=== PATIENT | female | born 2005 | race African-American/Black ===

== ENCOUNTER 2023-10-26 23:20 | Emergency (ER) | payer OTHER | END 2023-10-27 00:14 | disposition home or self-care (01) | LOC: ERS 23:20 | DX: M25.512 Pain in left shoulder (principal); Z55.6 Problems related to health literacy ==

== ENCOUNTER 2025-03-26 19:28 | Emergency (ER) | payer SELFPAY ==
[2025-03-26 20:36] LABS: Pregnancy Test - Urine (BHCG) Negative (Negative)
[2025-03-26 20:37] LABS: CAUTI Indications for Culture Pelvic or flank pain; Glucose, Urine (Dipstick) Normal (Negative); Leukocyte Negative Leu/uL (Negative); Pregu Control Background? CLEAR/WHITE (CLR/WHITE); Pregu Control Bar Appear? YES (CONTROL BAR); Protein, Urine (Dipstick) Negative (Neg-Trace); Specific Gravity, Urine 1.015 (1.002-1.036); WBC/HPF 0-3 HPF (0-3)
[2025-03-26 20:38] LABS: Bacteria/HPF 1+ HPF (None Seen)
[2025-03-26 20:39] LABS: Urine Culture Reflex No No
== END 2025-03-26 20:30 | disposition home or self-care (01) ==
LOC: ERS 19:28
DX: B34.9 Viral infection, unspecified (principal)
CPT/HCPCS: 81025; 99283